=== PATIENT | female | born 1970 | race Caucasian/White ===

== ENCOUNTER 2016-05-12 20:31 | Emergency (ER) | payer BC ==
[2016-05-12 20:43] VITALS: BP 132/82
[2016-05-12] MEDS ORDERED: HYDROcodone/ACETAMIN 5-325 MG* 1 TAB PO ONE (21:02)
[2016-05-12] MEDS ORDERED: Cyclobenzaprine TAB* 10 MG PO ONE (21:02)
--- NOTE | 2016-05-18 08:33 | UC ---
Neck Pain HPI - HPI Summary HPI Summary: right-sided neck pain for several days. Woke with it, no known injury. Hurts to turn head toward that side. Recently started gabapentin, wants to be sure it's not a side effect. No fever. No recent illness other than mild cough. - History of Current Complaint Chief Complaint: UCGeneralIllness Stated Complaint: left shoulder/neck swelling Time Seen by Provider: 05/12/16 20:47 Hx Obtained From: Patient, Family/Cte Teacher Mechanism Of Injury: No Known Trauma Timing: Constant Onset/Duration: Gradual Onset - woke with it, gradually worsened Severity: Mild Pain Intensity: 8 Pain Scale Used: 0-10 Numeric Character: Dull, Aching, Stiff Aggravating Factors: Movement Alleviating Factors: Heat Associated Signs & Symptoms: Negative: Swelling, Redness, Weakness, Headache - Risk Factors Meningitis Risk Factors: Negative - Allergies/Home Medications Allergies/Adverse Reactions: Allergies Allergy/AdvReac Type Severity Reaction Status Date / Time Shellfish Allergy Allergy Severe Anaphylatic Verified 05/12/16 20:43 Shock Iodine Allergy Anaphylatic Verified 05/12/16 20:43 Shock Topiramate [From Topamax] Allergy Anaphylatic Verified 05/12/16 20:43 Shock Home Medications: Home Medications Gabapentin CAP(*) [Neurontin 300 CAP(*)] 600 mg PO BID 05/12/16 [History Confirmed 05/12/16] PMH/Surg Hx/FS Hx/Imm Hx - Additional Past Medical History Additional PMH: chronic pain Respiratory History Of: Reports: Asthma - Surgical History Surgical History: Yes Surgery Procedure, Year, and Place: hysterectomy. uterine cancer removed. appy. wrist surgery. - Family History Known Family History: Positive: Hypertension - Social History Occupation: Employed Full-time Lives: With Family Alcohol Use: None Substance Use Type: None Smoking Status (MU): Former Smoker When Did the Patient Quit Smoking/Using Tobacco: 2004 - Immunization History Most Recent Influenza Vaccination: 12/2013 Review Of Systems Constitutional: Positive: Negative Skin: Positive: Negative Eyes: Positive: Negative ENT: Positive: Negative Respiratory: Positive: Negative Cardiovascular: Positive: Negative Gastrointestinal: Positive: Negative Genitourinary: Positive: Negative Musculoskeletal: Positive: Decreased ROM, Myalgia Neurological: Positive: Headache - off and on, not severe Psychological: Positive: Negative All Other Systems Reviewed And Are Negative: Yes Physical Exam Triage Information Reviewed: Yes Appearance: Well-Appearing, No Pain Distress, Well-Nourished Vital Signs: Initial Vital Signs Temp 98.2 F 05/12/16 20:39 Pulse 84 05/12/16 20:39 Resp 16 05/12/16 20:39 BP 132/82 05/12/16 20:39 Pulse Ox 97 05/12/16 20:39 Vital Signs Reviewed: Yes Eye Exam: Normal ENT Exam: Normal Neck: Positive: Tenderness @ - right lateral neck, trapezius area Respiratory Exam: Normal Cardiovascular Exam: Normal Musculoskeletal Exam: Normal Neurological Exam: Normal Neurological: Positive: Alert, Muscle Tone Normal Psychological Exam: Normal Neck Pain Course/Dx - Differential Dx/Diagnosis Differential Dx/HQI/PQRI: Torticollis Provider Diagnoses: torticolllis Discharge - Discharge Plan Condition: Stable Disposition: HOME Prescriptions: Cyclobenzaprine TAB* [Flexeril TAB*] 10 mg PO TID PRN #20 tab PRN Reason: neck spasm Hydrocodone-Acetaminophen [Hydrocodone/Acetaminophen 5-325 mg] 1 - 2 tab PO Q6HR PRN #20 tab MDD 6 tab PRN Reason: neck pain Patient Education Materials: Spasmodic Torticollis (ED) Forms: *Work Release Referrals: Joe Raygoza PA [Primary Care Provider] -
== END 2016-05-12 21:18 | disposition home or self-care (01) ==
LOC: UCCORT 20:31
DX: M43.6 Torticollis (principal); Z87.891 Personal history of nicotine dependence
CPT/HCPCS: 99212; A9270-GY; G0463

== ENCOUNTER 2017-03-30 10:03 | Emergency (ER) | payer BC ==
--- NOTE | 2017-03-30 11:18 | UC ---
Respiratory Complaint HPI - HPI Summary HPI Summary: 47 year old female asthmatic presents with complains of cough and wheezing. - History of Current Complaint Stated Complaint: COUGH,FEVER,HEAVY BREATHING Time Seen by Provider: 03/30/17 11:18 Hx Obtained From: Patient Onset/Duration: Sudden Onset Severity Initially: Moderate Severity Currently: Moderate Pain Scale Used: 0-10 Numeric - 0 Character: Cough: Nonproductive Alleviating Factors: Bronchodilator Associated Signs And Symptoms: Positive: Wheezing - Allergies/Home Medications Allergies/Adverse Reactions: Allergies Allergy/AdvReac Type Severity Reaction Status Date / Time Shellfish Allergy Allergy Severe Anaphylatic Verified 03/30/17 11:19 Shock Iodine Allergy Anaphylatic Verified 03/30/17 11:19 Shock Topiramate [From Topamax] Allergy Anaphylatic Verified 03/30/17 11:19 Shock PMH/Surg Hx/FS Hx/Imm Hx Previously Healthy: Yes - Surgical History Surgical History: Yes Surgery Procedure, Year, and Place: hysterectomy. uterine cancer removed. appy. wrist surgery. - Family History Known Family History: Positive: Hypertension - Social History Alcohol Use: None Substance Use Type: None Smoking Status (MU): Former Smoker When Did the Patient Quit Smoking/Using Tobacco: 2004 - Immunization History Most Recent Influenza Vaccination: 12/2013 Review of Systems Constitutional: Negative Skin: Negative Eyes: Negative ENT: Nasal Discharge, Sinus Congestion, Sinus Pain/Tenderness Respiratory: Cough Cardiovascular: Negative Gastrointestinal: Negative Genitourinary: Negative Motor: Negative Neurovascular: Negative Musculoskeletal: Negative Neurological: Negative Psychological: Negative All Other Systems Reviewed And Are Negative: Yes Physical Exam Triage Information Reviewed: Yes Vital Signs Reviewed: Yes Eye Exam: Normal ENT: Positive: Pharyngeal erythema, Nasal congestion, Nasal drainage, Sinus tenderness Dental Exam: Normal Neck exam: Normal Neck: Positive: 1 Respiratory: Positive: Rhonchi, Wheezing Cardiovascular Exam: Normal Abdominal Exam: Normal Musculoskeletal Exam: Normal Neurological Exam: Normal Psychological Exam: Normal Skin Exam: Normal Respiratory Course/Dx - Differential Dx/Diagnosis Provider Diagnoses: bronchitis. sinusitis Discharge - Discharge Plan Condition: Stable Disposition: HOME Prescriptions: Albuterol HFA INHALER* [Ventolin HFA Inhaler*] 1 puff INH Q6H PRN #1 mdi PRN Reason: Wheezing Amoxicillin/Clavulanate TAB* [Augmentin TAB 875*] 875 mg PO BID #20 tab Guaifenesin-Codeine [Cheratussin AC] 1 teasp PO Q8H PRN #120 syp MDD 15 ml PRN Reason: Cough predniSONE TAB* [Deltasone TAB*] 40 mg PO DAILY #10 tab Patient Education Materials: Acute Cough (ED) Forms: *Work Release Referrals: Joe Raygoza PA [Primary Care Provider] -
[2017-03-30 11:19] VITALS: BP 131/78
[2017-03-30] MEDS ORDERED: Albuterol 2.5 MG/3 ML NEB.SOL* (0.083%) INH ONE (11:24)
[2017-03-30] MEDS ORDERED: guaiFENesin/CODIEN 100MG-10MG* 5 ML UDC PO ONE (11:24)
[2017-03-30] MEDS ORDERED: predniSONE TAB* 20 MG PO ONE (11:25)
== END 2017-03-30 11:58 | disposition home or self-care (01) ==
LOC: UCCORT 10:03
DX: J40 Bronchitis, not specified as acute or chronic (principal); J32.9 Chronic sinusitis, unspecified; Z91.013 Allergy to seafood; Z88.8 Allergy status to other drugs, medicaments and biological substances; Z87.891 Personal history of nicotine dependence
CPT/HCPCS: 99211; A9270-GY; G0463; J7512

== ENCOUNTER 2017-07-24 21:03 | Emergency (ER) | payer BC ==
[2017-07-24 21:35] VITALS: BP 118/86
--- NOTE | 2017-07-24 22:07 | UC ---
Throat Pain/Nasal Ashvin HPI - HPI Summary HPI Summary: patient c/o sore throat for close to a month, states she went to PCP without an answer and then came to on 07/05/17. Rapid strept was negative, was given course of keflex which she states she completed and that initially made her feel better but now has recurrence of pain as she swallows. She also c/o occasional dry cough. Denies fever. States she is taking 2 medications for GERD and follows antireflux measures. - History of Current Complaint Chief Complaint: UCGeneralIllness Stated Complaint: SORE THROAT RECHECK Time Seen by Provider: 07/24/17 21:40 Hx Obtained From: Patient Hx Last Menstrual Period: 1999 Onset/Duration: Gradual Onset, Lasting Weeks Severity: Moderate Pain Intensity: 8 Cough: Nonproductive Associated Signs & Symptoms: Positive: Negative - Epiglottits Risk Factors Epiglottis Risk Factors: Negative - Allergies/Home Medications Allergies/Adverse Reactions: Allergies Allergy/AdvReac Type Severity Reaction Status Date / Time Iodine and Iodide Containing Allergy Severe Anaphylatic Verified 07/24/17 21:36 Produc Shock shellfish derived Allergy Severe Anaphylatic Verified 07/24/17 21:36 Shock apricot Allergy Unknown ITCHING Verified 07/24/17 21:36 FROM HEAD TO TOES topiramate [From Topamax] Allergy Unknown Anaphylatic Verified 07/24/17 21:36 Shock PMH/Surg Hx/FS Hx/Imm Hx Previously Healthy: Yes Respiratory History: Asthma GI/ History: Gastroesophageal Reflux Psychological History: Depression - Surgical History Surgical History: Yes Surgery Procedure, Year, and Place: hysterectomy. uterine cancer removed. appy. wrist surgery. . LEFT GROIN LYMPH NODE EXCISION - Family History Known Family History: Positive: Hypertension - Social History Alcohol Use: None Substance Use Type: None Smoking Status (MU): Former Smoker When Did the Patient Quit Smoking/Using Tobacco: 2004 - Immunization History Most Recent Influenza Vaccination: 12/2013 Review of Systems Constitutional: Negative ENT: Sore Throat Respiratory: Cough All Other Systems Reviewed And Are Negative: Yes Physical Exam Triage Information Reviewed: Yes Appearance: Well-Appearing Vital Signs: Initial Vital Signs Temp 97.9 F 07/24/17 21:31 Pulse 93 07/24/17 21:31 Resp 14 07/24/17 21:31 BP 118/86 07/24/17 21:31 Pulse Ox 97 07/24/17 21:31 Vital Signs Reviewed: Yes Eyes: Positive: Conjunctiva Clear ENT: Positive: Hearing grossly normal Neck exam: Normal Neck: Positive: Supple, Nontender, No Lymphadenopathy Respiratory: Positive: Chest non-tender, Lungs clear, Normal breath sounds, No respiratory distress Cardiovascular: Positive: RRR, No Murmur, Pulses Normal, Brisk Capillary Refill Throat Pain/Nasal Course/Dx - Course Course Of Treatment: discussed with patient possible diagnosis of GERD due to chronicity of sore throat, offered MMW which she declined. She had recent course of keflex and currently not medically indicated to repeat antibiotics. She declined throat culture, will have her f/u with GI for work up - Differential Dx/Diagnosis Provider Diagnoses: GERD. VIral URI Discharge - Sign-Out/Discharge Documenting (check all that apply): Discharge/Admit/Transfer - Discharge Plan Condition: Stable Disposition: HOME Patient Education Materials: Gastroesophageal Reflux Disease (DC) Referrals: Laila Park NP [Primary Care Provider] - Additional Instructions: follow up with ice maker due to chronic sore throat, r/o GERD exacerbation - Billing Disposition and Condition Condition: STABLE Disposition: HOME
== END 2017-07-24 22:05 | disposition home or self-care (01) ==
LOC: UCCORT 21:03
DX: K21.9 Gastro-esophageal reflux disease without esophagitis (principal); J06.9 Acute upper respiratory infection, unspecified; Z88.8 Allergy status to other drugs, medicaments and biological substances; Z91.041 Radiographic dye allergy status; Z87.891 Personal history of nicotine dependence
CPT/HCPCS: 99211; G0463

== ENCOUNTER 2018-01-12 12:16 | Emergency (ER) | payer BC ==
--- OUTSIDE RECORDS SUMMARY | 2018-01-12 13:44 | XMS REPORT ---
:1970 External Reference #:[id number] Author Organization [facility] 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 Joe Park, MANAGER BAR Primary Care Physician Unavailable Payers Type Date Identification Numbers Payment Provider Subscriber Commercial Policy Number: [id number] Ulises Mcdonnell PayID: [id number] [address] [address] [place] [address] Problems Date Description Provider Status Onset: 04/22/2017 Migraine with typical aura Joe Park ENVIRONMENTAL HEALTH TECHNOLOGIST Active Onset: 04/22/2017 Uncomplicated moderate persistent Joe Park ENVIRONMENTAL HEALTH TECHNOLOGIST Active asthma Onset: 04/22/2017 Obesity Joe Park, ENVIRONMENTAL HEALTH TECHNOLOGIST Active Onset: 05/04/2017 Ulcerative colitis Joe Park, ENVIRONMENTAL HEALTH TECHNOLOGIST Active Onset: 06/30/2017 Hyperglycemia Joe Park, ENVIRONMENTAL HEALTH TECHNOLOGIST Active Note: A1C 6.2 on 03/2017 Onset: 08/06/2017 Hypothyroidism Joe Park, ENVIRONMENTAL HEALTH TECHNOLOGIST Active Onset: 12/16/2017 Non-alcoholic fatty liver Yolanda Parkfervidalgh, ENVIRONMENTAL HEALTH TECHNOLOGIST Active Family History Date Family Member(s) Problem(s) Comments General CAD Father Hypertension : (age Father due to Pancreatic caused diabetes 52 Years) Cancer Mother Thyroid Disease Mother Heart Disease Mother Hypertension Mother Depression Mother Rheumatoid Arthritis Mother Osteoarthritis Mother Atrial Fibrillation Mother Osteoporosis Mother Abdominal Aortic Aneurysm H/O smoking : (age Paternal Grandfather due to Liver + ETOH 54 Years) Cancer Paternal Grandmother Hypertension : (age Paternal Grandmother due to Heart 79 Years) Attack Maternal Grandfather due to Lung Cancer () - + smoker Maternal Grandmother Diabetes Maternal Grandmother due to Stomach () Cancer Maternal Grandmother due to Uterine () Cancer Social History Type Date Description Comments Lives With Spouse Lives With Children x 3 Diet Patient follows no dietary restrictions 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 ADL's/IADL's Independent with all ADL's ETOH Use Denies alcohol use Smoking 04/22/2017 Patient is a former smoker 20 pack year history Allergies, Adverse Reactions, Alerts Date Description Reaction Status Severity Comments 04/22/2017 Shellfish-Derived Products active 04/22/2017 Topamax active 04/22/2017 Apricots active 04/22/2017 Spider Bites active Medications Medication Date Status Form Strength Qnty SIG Indications Ordering Provider Polyethylene 11/21/ Active Powder 3350NF 527un Mix One K51.90 Clune, Glycol 3350 2018 its Tablespoon Jenniferl In 8 Ounces eigh, ENVIRONMENTAL HEALTH TECHNOLOGIST Of Water Or Fluid And Drink Twice Daily Levothyroxine 07/30/ Active Tablets 50mcg 30tab 1 by mouth Angelica, Sodium 2018 s every day FATUMA Bo-BC, ENVIRONMENTAL HEALTH TECHNOLOGIST, Ibclc Biotin 04/22/ Active Tablets 5000mcg 2 by mouth Cl2017 every day Jenniferl eigh, ENVIRONMENTAL HEALTH TECHNOLOGIST Advair HFA 04/22/ Active Aerosol 115-21mcg/ 16gm use 1 puffs J45.40 2017 Act twice daily Jenniferl for asthma eigh, ENVIRONMENTAL HEALTH TECHNOLOGIST prevention - rinse mouth afterwards Acetaminophen-C / Active Tablets 300-30mg Unknown odeine #3 0000 Ventolin HFA / Active Aerosol 108(90Base Take 1 puff Unknown 0000 ) mcg/Act By Mouth Every 6 Hours as Needed For Wheeze Sertraline HCL / Active Tablets 100mg Raygoza, 0000 Girish WILLAMS Famotidine / Active Tablets 40mg 30tab 1 tab by Cl, s mouth every Jenniferl daily eigh, ENVIRONMENTAL HEALTH TECHNOLOGIST Milk Thistle / Active Capsules 250mg takes Cl 2-1000mg Jenniferl gel caps eigh, ENVIRONMENTAL HEALTH TECHNOLOGIST daily otc Vitamin C / Active Tablets 1000mg 1 by mouth Clune, 0000 every day Jenniferl eigh, ENVIRONMENTAL HEALTH TECHNOLOGIST Pantoprazole / Active Tablets DR 40mg 60tab take 1 Clune, Sodium s tablet by Jenniferl mouth twice eigh, ENVIRONMENTAL HEALTH TECHNOLOGIST a day Prednisone 12/29/ Hx Tablets 10mg 21tab start at 6 M54.31 Vivian, 2017 - s tabs by Jenniferl 01/06/ mouth every eigh, ENVIRONMENTAL HEALTH TECHNOLOGIST 2017 day and decrease by one tab each day until gone Miralax 08/06/ Hx Powder 3350NF 1Bott 1 K51.90 Vivian, 2017 - le tablespoon Jenniferl 11/21/ in 8ounces eigh, ENVIRONMENTAL HEALTH TECHNOLOGIST 2017 of water or fluid bid Cefdinir 07/28/ Hx Capsules 300mg 20cap 1 by mouth J01.90 Angelica, 2018 - s twice a day Betzy, 08/06/ PNP-BC, 2018 ENVIRONMENTAL HEALTH TECHNOLOGIST, Ibclc Prednisone 07/28/ Hx Tablets 20mg 5tabs 2 tabs J02.9 Angelica, 2018 - today; 1 Betzy 08/06/ tab for 2 PNP-BC, 2018 days; 2 ENVIRONMENTAL HEALTH TECHNOLOGIST, days of 1/2 Ibclc tab Nortriptyline / Hx Capsules 25mg Unknown HCL 0000 - 2017 Cholest Off Hx 1 aday otc Clune, 0000 - Jenniferl , ENVIRONMENTAL HEALTH TECHNOLOGIST 2018 Metab Up Plus / Hx 1 daily Clune, 0000 - Jenniferl , ENVIRONMENTAL HEALTH TECHNOLOGIST 2017 Vital Signs Date Vital Result Comment 12/29/2017 BP Systolic 120 mmHg BP Diastolic 80 mmHg Body Temperature 98.5 F Heart Rate 91 /min Respiratory Rate 18 /min Weight 222.00 lb O2 % BldC Oximetry 97 % Ra Pain Level 7 lower back, right leg. 08/06/2017 BP Systolic Sitting Resting Right Arm 128 mmHg BP Diastolic Sitting Resting Right Arm 78 mmHg Body Temperature 98.1 F Heart Rate 78 /min Respiratory Rate 18 /min Height 64 inches 5'4" Weight 218.12 lb BMI (Body Mass Index) 37.4 kg/m2 BSA (Body Surface Area) 2.03 m2 [place] body weight in kilograms 54 07/28/2017 BP Systolic 148 mmHg BP Diastolic 80 mmHg Body Temperature 98.0 F Heart Rate 128 /min Respiratory Rate 18 /min Height 64 inches 5'4" Weight 219.25 lb BMI (Body Mass Index) 37.6 kg/m2 BSA (Body Surface Area) 2.03 m2 [place] body weight in kilograms 54 O2 % BldC Oximetry 98 % 05/04/2017 BP Systolic Sitting Left Arm 118 mmHg BP Diastolic Sitting Left Arm 74 mmHg Heart Rate 80 /min Respiratory Rate 20 /min Height 64 inches 5'4" Weight 220.00 lb BMI (Body Mass Index) 37.8 kg/m2 BSA (Body Surface Area) 2.04 m2 [place] body weight in kilograms 54 04/22/2017 BP Systolic Sitting Left Arm 122 mmHg BP Diastolic Sitting Left Arm 76 mmHg Heart Rate 88 /min Respiratory Rate 18 /min Height 64 inches 5'4" Weight 225.25 lb BMI (Body Mass Index) 38.7 kg/m2 BSA (Body Surface Area) 2.06 m2 [place] body weight in kilograms 54 Results Test Date Test Result H/L Range Note Rheumatoid Panel ([facility]) 12/30/2017 Sedimentation Rate 20 mm/hr 0-20 1, 2 Uric Acid 5.5 mg/dL 2.6-6.0 1 Rheumatoid Factor Screen < 10.0 IU/mL 0.0-15.0 1 C-Reactive Protein,Quant 6.1 mg/L High <3.0 1 Antinuclear Antibodies, Ifa Negative . 1, 3 Lyme AB/Western Blot 12/30/2017 Lyme Total AB/Reflex < 0.91 ISR 0.00- 0.90 1, 4 Reflex To WB Lyme Disease Antibody,QT,Igm < 0.80 index 0.00-0.79 1, 5 CBC 12/30/2017 White Blood Count 20.8 K/uL High 3.1-10.7 1 Red Blood Count 4.59 M/uL 3.90-5.40 1 Hemoglobin 13.4 gm/dL 11.6-15.8 1 Hematocrit 40.1 % 36.0-46.1 1 Mean Cell Volume 87.4 fl 80.9-99.0 1 Mean Corpuscular HGB 29.2 pg 25.9-32.7 1 Mean Corpuscular HGB Conc 33.4 g/dL 30.8-34.3 1 Platelet Count 425 K/uL High 155-360 1 Red Cell Distri Width %CV 13.0 % 11.7-14.4 1 Mean Platelet Volume 9.8 fL 8.9-12.4 1 Systemic Lupus Erythem. Profil 12/30/2017 Ra Latex Turbid. <10.0 IU/mL 0.0-13.9 1 Anti-Dna Antibody (Kotlik) 2 IU/mL 0-9 1, 6 SM Antibody <0.2 AI 0.0-0.9 1 CHANNELER INSOLE Antibody 0.4 AI 0.0-0.9 1 Sjogrens Antibodies (Ssa) <0.2 AI 0.0-0.9 1 Antichromatin Antibodies <0.2 AI 0.0-0.9 1 Sjogrens Antibodies (SSB) <0.2 AI 0.0-0.9 1 Laboratory test finding 12/30/2017 Thyroid Stim Hormone 1.12 uIU/mL 0.30- 4.20 1 Vitamin D,1,25 Dihydroxy 48.3 pg/mL 19.9-79.3 1, 7 Calcium 9.1 mg/dL 8.5-10.1 1 Total Protein 8.3 g/dL High 6.4-8.2 1 Albumin 3.6 g/dL 3.4-5.0 1 Alb/Glob 0.8 ratio 1 Alkaline Phosphatase 179 U/L High 45-117 1 Globulin 4.7 g/dL High 1.9-4.3 1 Ua RFX Micro & Culture II 12/15/2017 Urine Color YELLOW Yellow 8 Urine Clarity CLEAR Clear 8 Urine Glucose - Dipstick NEGATIVE mg/dL Negative 8 Urine Bilirubin - Dipstick NEGATIVE Negative 8 Urine Ketone NEGATIVE mg/dL Negative 8 Urine Specific [place] >=1.030 1.010-1.030 8 Urine Blood NEGATIVE Negative 8 Urine PH 5.5 Low 6.5-7.5 8 Urine Protein - Dipstick NEGATIVE mg/dL Negative 8 Urine Urobilinogen - Dipstick 0.2 E.U./dL 0.2-1.0 8 Urine Nitrite - Dipstick NEGATIVE Negative 8 Urine Leuk Esterase NEGATIVE Negative 8 Source: URINE, CLEAN CAT <SEE NOTE> 8, 9 pH Ur Strip.auto 12/15/2017 pH Ur Strip.auto 5.5 Low 6.5-7.5 Urobilinogen Ur 12/15/2017 Urobilinogen Ur 0.2 0.2-1.0 Strip-aCnc Strip-aCnc Urine total bilirubin 12/15/2017 Urine total bilirubin Negative Negative detection by automated detection by automated test test strip Urine hemoglobin 12/15/2017 Urine hemoglobin Negative Negative detection by automated detection by automated test strip test strip Urine glucose 12/15/2017 Urine glucose Negative Negative measurement by measurement by automated test strip automated test strip (mass/volume) Laboratory test 12/15/2017 Urine HCG NEGATIVE Negative 8, 10 finding (Qualitative) Color Ur 12/15/2017 Color Ur Yellow Yellow Ketones Ur 12/15/2017 Ketones Ur Negative Negative Strip.auto-mCnc Strip.auto-mCnc Urine appearance 12/15/2017 Urine appearance Clear Clear determination determination Prot Ur 12/15/2017 Prot Ur Negative Negative Strip.auto-mCnc Strip.auto-mCnc Leukocyte esterase Ur 12/15/2017 Leukocyte esterase Ur Negative Negative Ql Strip.auto Ql Strip.auto Nitrite Ur Ql 12/15/2017 Nitrite Ur Ql Negative Negative Strip.auto Strip.auto Differential-WBC 07/28/2017 Total Cells Counted 100 #CELLS 11 Confirm Band% 2 % 0-8 11 Neutrophils% 31 % Low 33-73 11 Lymph% 38 % 20-42 11 Atypical Lymph% 14 % High 0-7 11, 12 Monocyte% 9 % 0-10 11 Eosinophil% 4 % 0-5 11 Basophil% 2 % 0-2 11 Platelet Estimate NORMAL 11 Toxic Granulation 0-1+ 11 Differential Comment LARGE PLATELETS <SEE NOTE> 11, 13 Path Review: 07/28/2017 Path Review: INDICATED,SLIDE <SEE 11, 14 NOTE> CBS W/Automated 07/28/2017 White Blood 11.7 K/uL High 3.1-10.7 11 Diff Count Red Blood Count 4.94 M/uL 3.90-5.40 11 Hemoglobin 14.4 gm/dL 11.6-15.8 11 Hematocrit 44.3 % 36.0-46.1 11 Mean Cell Volume 89.7 fl 80.9-99.0 11 Mean Corpuscular HGB 29.1 pg 25.9-32.7 11 Mean Corpuscular HGB Conc 32.5 g/dL 30.8-34.3 11 Platelet Count 375 K/uL High 155-360 11 Red Cell Distri Width SD 43.7 fl 3-47 11 Red Cell Distri Width %CV 13.6 % 11.7-14.4 11 Mean Platelet Volume 9.9 fL 8.9-12.4 11 Neut% 40.6 % 40.4-72.8 11 Lymph % 46.9 % High 20.0-42.0 11 Bowman % 7.3 % 4.3-13.2 11 Eo% 4.6 % 0.0-6.6 11 Bas% 0.6 % 0.0-1.1 11 Neut# 4.73 K/uL 1.8-7.0 11 Lymph # 5.46 K/uL High 1.0-4.0 11 Bowman # 0.85 K/uL 0.3-0.9 11 Eos # 0.54 K/uL High 0.0-0.5 11 Baso # 0.07 K/uL 0.0-0.1 11 Laboratory test 07/28/2017 Bowman Screen NEGATIVE Negative 11, 15 finding (Heterophile) Ebv Acute Infection 07/28/2017 Ebv AB Vca,Igm <36.0 U/mL 0.0-35.9 11, 16 Antibodies Ebv Early Antigen AB, IgG <9.0 U/mL 0.0-8.9 11, 17 Ebv AB Vca,Igg >600.0 U/mL High 0.0-17.9 11, 18 Ebv Nuclear Antigen AB, Igg 147.0 U/mL High 0.0-17.9 11, 19 Ebv Interpretation (SEE NOTE) 11, 20 Laboratory test finding 07/28/2017 Thyroid Stim 4.26 uIU/mL High 0.30- 4.20 11 Hormone Slide Review 07/28/2017 Slide Review DIFF ORDERED 11 Laboratory test finding 07/05/2017 Rapid Strep Negative Negative 21 Molecular Comprehensive Metabolic 04/22/2017 Glucose 96 mg/dL 74-106 22 Panel BUN 12 mg/dL 7-18 22 Creatinine 0.8 mg/dL 0.6-1.3 22 Glom Filtration Rate, Estimate >60 mL/min >60 22 If >60 mL/min >60 22, 23 BUN/Creat 15.0 ratio 22 Sodium 139 mmol/L 136-145 22 Potassium 4.2 mmol/L 3.5-5.1 22 Chloride 106 mmol/L 98-107 22 Carbon Dioxide 27 mmol/L 21-32 22 Anion Gap 6 mEq/L Low 8-16 22 Calcium 9.6 mg/dL 8.5-10.1 22 Total Protein 8.0 g/dL 6.4-8.2 22 Albumin 3.8 g/dL 3.4-5.0 22 Globulin 4.2 g/dL 1.9-4.3 22 Alb/Glob 0.9 ratio 22 Bilirubin,Total 0.3 mg/dL 0.2-1.0 22 Sgot/Ast 28 U/L 15-37 22 SGPT/Alt 54 U/L 12-78 22 Alkaline Phosphatase 179 U/L High 45-117 22 LDL Cholesterol Profile 04/22/2017 Cholesterol 202 mg/dL High <200 22, 24 Triglycerides 312 mg/dL High <150 22, 25 HDL Cholesterol 28 mg/dL Low >40 22, 26 LDL-Cholesterol 112 mg/dL < 100 22, 27 Laboratory test 04/22/2017 Thyroid Stim Hormone 3.60 uIU/mL 0.30-4.20 22 finding Thyroid Antibodies 04/22/2017 Thyroglobulin Antibody < 1.0 IU/mL 0.0-0.9 22, 28 Thyroid Peroxidase Antibodies 32 IU/mL 0-34 22, 29 Laboratory test finding 04/22/2017 Free T3 3.23 pg/mL 2.18-3.98 22 Free T4 1.03 ng/dL 0.76-1.46 22 Amylase 22 U/L Low 25-115 22 Lipase 87 U/L 56-289 22 CBS W/Automated Diff 04/22/2017 White Blood Count 11.1 K/uL High 3.1-10.7 22 Red Blood Count 4.81 M/uL 3.90-5.40 22 Hemoglobin 14.0 gm/dL 11.6-15.8 22 Hematocrit 43.2 % 36.0-46.1 22 Mean Cell Volume 89.8 fl 80.9-99.0 22 Mean Corpuscular HGB 29.1 pg 25.9-32.7 22 Mean Corpuscular HGB Conc 32.4 g/dL 30.8-34.3 22 Platelet Count 374 K/uL High 155-360 22 Red Cell Distri Width SD 43.7 fl 3-47 22 Red Cell Distri Width %CV 13.6 % 11.7-14.4 22 Mean Platelet Volume 10.1 fL 8.9-12.4 22, 30 Neut# 4.55 K/uL 1.8-7.0 22 Lymph # 5.17 K/uL High 1.0-4.0 22 Bowman # 0.82 K/uL 0.3-0.9 22 Eos # 0.53 K/uL High 0.0-0.5 22 Baso # 0.06 K/uL 0.0-0.1 22 Vitamin B12 And Folate 04/22/2017 Vitamin B12 391 pg/mL 193-986 22 Folic Acid 8.3 ng/mL 3.1-17.5 22 Glycohemoglobin A1c 04/22/2017 Glycohemoglobin (A1c) 6.2 % 4.2-6.3 22, 31 eAG 131 mg/dL 22 Laboratory test finding 04/22/2017 Luteinizing Hormone 26.0 mIU/mL 22, 32 Prolactin 9.4 ng/mL 22, 33 Estradiol,Serum 8.9 pg/mL . 22, 34 Testosterone,Free/Weakly Bound 04/22/2017 Testosterone,Serum <3 ng/dL Low 8-48 22 Testosterone,%Free/Weakly BND 22.0 % High 3.0-18.0 22 Testosterone,Free Weakly Bound <.7 ng/dL 0.0-9.5 22 Slide Review 04/22/2017 Slide Review DIFF ORDERED 22 Path Review: 04/22/2017 Path Review: INDICATED,SLIDE <SEE 22, 35 NOTE> Differential-WBC 04/22/2017 Total Cells Counted 100 #CELLS 22 Confirm Neutrophils% 38 % 33-73 22 Lymph% 35 % 20-42 22 Atypical Lymph% 10 % High 0-7 22 Monocyte% 12 % High 0-10 22 Eosinophil% 5 % 0-5 22 Platelet Estimate NORMAL 22 RBC Morphology NORMAL 22 Differential Comment LARGE PLATELETS <SEE NOTE> 22, 36 1 Z82.61 2 Method: Sediplast Modified Westergren 3 Negative <1:80 Borderline 1:80 Positive >1:80 4 Negative <0.91 Equivocal 0.91 - 1.09 Positive >1.09 5 Negative <0.80 Equivocal 0.80 - 1.19 Positive >1.19 IgM levels may peak at 3-6 weeks post infection, then gradually decline. Performed at: - [facility] [id number] Fisher Weir: Toña Oviedo MD, Phone: [phone] Negative <5 Equivocal 5 - 9 Positive >9 7 Performed at: - [facility] [id number] [place] Weir: Luciano Linn MD, Phone: [phone] 8 BACK PAIN, PAIN SHOOTING DOWN LEGS 9 URINE, CLEAN CATCH 10 FIRST MORNING SPECIMENS GENERALLY CONTAIN THE HIGHEST CONCENTRATION OF HCG AND ARE RECOMMENDED FOR EARLY DETECTION OF . Method: Quidel QuickVue One-Step Immunoassay 11 R53.83 12 DIFFERENTIAL CHECKED BY REPEAT COUNT 13 LARGE PLATELETS PRESENT. 14 INDICATED,SLIDE SENT Hematology Consultation Final Report Case# [id number] Final Diagnosis Review of Peripheral Blood Smear Review of peripheral blood smear confirms the hemogram findings. There is mild absolute lymphocytosis. About 20% reactive lymphocytes are present. The findings are suggestive of an acute viral infection or a medication effect. This case was reviewed and signed out at [facility], [address] [address]. JSS 07/30/17 Gross Description Peripheral blood smear Clinical Data Absolute lymphocytosis Yanni Williamson M.D., Pathologist Reported: 07/30/17 5:53 PM Report Signed Electronically Performed at: [facility] [id number] [place] [address] 15 METHOD: Bowman II Rapid Immunochromatographic assay [facility] 16 Negative <36.0 Equivocal 36.0 - 43.9 Positive >43.9 17 Negative < 9.0 Equivocal 9.0 - 10.9 Positive >10.9 18 Negative <18.0 Equivocal 18.0 - 21.9 Positive >21.9 19 Negative <18.0 Equivocal 18.0 - 21.9 Positive >21.9 20 EBV Interpretation Chart Interpretation EBV-IgM EA(D)-IgG VCA-IgG EBNA-IgG EBV Seronegative - - - - Early Phase + - - - Acute Primary + +or- + - Infection Convalescence/Past - +or- + + Infection Reactivated +or- + + + Infection + Antibody Present - Antibody Absent Performed at: RN - [facility] [address] [id number] [place] Weir: Toña Oviedo MD, Phone: [phone] 21 Clinical Informatics Spec: [id number] 22 E66.9 23 Note: Persistent reduction for 3 months or more in an eGFR <60 mL/min/1.73 m2 defines CKD. Patients with eGFR values >/=60 mL/min/1.73 m2 may also have CKD if evidence of persistent proteinuria is present. The original MDRD equation for estimated GFR is not valid for patients less than 18 years of age. Additional information may be found at www.kdoqi.org. 24 Reference Guidelines*: Desirable: ........... < 200 mg/dL Borderline High: ..... 200-239 mg/dL High: ................ >=240 mg/dL * The National Cholesterol Education Program (NCEP) 25 Reference Guidelines*: Normal: ............. < 150 mg/dL Borderline High: .... 150-199 mg/dL High: ............... 200-499 mg/dL Very High: .......... > 500 mg/dL * Source: National Cholesterol Education Program (NCEP) 26 Reference Guidelines*: Low HDL: ..... < 40 mg/dL Normal: ..... 40-60 mg/dL Desirable: ... > 60 mg/dL *The National Cholesterol Education Program(NCEP) 27 Reference Guidelines*: Optimal:........... <100 mg/dL Near Optimal....... 100-129 mg/dL Borderline High.... 130-159 mg/dL High............... 160-189 mg/dL Very High.......... >=190 mg/dL * Source: National Cholesterol Education Program (NCEP) 28 Thyroglobulin Antibody measured by Lopez Banner Methodology 29 Performed at: RN - [facility] [address] [id number] Fisher Weir: Toña Oviedo MD, Phone: [phone] Performed at: - [facility] [address] [id number] Fisher Weir: Luciano Linn MD, Phone: [phone] 30 04/22/17 1434: NEUT% previously reported as: 40.8 % Amended result called to: [] - 04/22/17 at 1434 04/22/17 1434: LYMPH % previously reported as: 46.5 H % Amended result called to: [] - 04/22/17 at 1434 04/22/17 1434: MONO % previously reported as: 7.4 % Amended result called to: [] 04/22/17 at 1434 04/22/17 1434: EO% previously reported as: 4.8 % Amended result called to: [] - 04/22/17 at 1434 04/22/17 1434: BAS% previously reported as: 0.5 % Amended result called to: [] - 04/22/17 at 1434 31 Elevated levels of HbA1c suggest the need for more aggressive treatment of glycemia. The [place] Diabetes Association recommends that a primary goal of therapy should be a HbA1c of <7% and that physicians should re-evaluate the treatment regimen in patients with HbA1c values consistently >8%. 32 Pubertal adults FEMALES, menstrual cycle phases: Follicular Phase............. 1.9-12.8 mIU/mL Mid-Cycle Peak............... 22.2-76.1 mIU/mL Luteal Phase................. 0.6-13.5 mIU/mL Post-meonpausal FEMALE: On menopausal hormone therapy (MHT) ... 1.1-52.4 mIU/mL Not on MHT ............................ 8.6-61.8 mIU/mL 33 Non- ..... 2.2-30.3 ng/mL ......... 8.1-347.6 ng/mL Post-Menopausal .. 0.7-31.5 ng/mL 34 Adult Female: Follicular phase 12.5 - 166.0 Ovulation phase 85.8 - 498.0 Luteal phase 43.8 - 211.0 Postmenopausal <6.0 - 54.7 1st trimester 215.0 - >4300.0 Girls (1-10 years) 6.0 - 27.0 Sharla ECLIA methodology Performed at: - [facility] [id number] [place] Weir: Toña Oviedo MD, Phone: [phone] 35 INDICATED,SLIDE SENT 36 LARGE PLATELETS PRESENT Procedures Date CPT Code Description Status Comment 03/29/2014 Mammogram Completed [facility]. Had biopsy - fibrocystic - continues to have sharp pain at the biopsy site and never wants another mammgraom Encounters Type Date Location Provider CPT E/M Dx Office Visit 12/29/2017 1:15p [facility] [place], [address] M54.31 ENVIRONMENTAL HEALTH TECHNOLOGIST Z82.61 M25.542 Office Visit 08/06/2017 11:45a [facility] [place] [address] [facility] [address] E66.9 J45.40 E03.9 K51.90 Office Visit 07/28/2017 11:00a [facility] Betzy Dominguez, PNP-, [address] R53.83 ENVIRONMENTAL HEALTH TECHNOLOGIST, Ibclc J02.9 J01.90 Office Visit 05/04/2017 9:30a [facility] Joe Park FNP [address] J45.40 K51.90 E66.9 Office Visit 04/22/2017 9:15a [facility] [place] Park FNP [address] J45.40 G43.109 E66.9 Z68.38 Office Visit 06/27/2013 2:08p [place] [address] 786.50 Office Visit 01/04/2013 4:45p [place] [address] 786.59 Plan of Care Future Appointment(s):02/07/2018 1:30 pm - Joe Park FNP at [facility]12/29/2017 - [place] FNPM54.31 Sciatica, right sideNew Medication:Prednisone 10 mgComments: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
[2018-01-12 13:58] VITALS: BP 128/83
--- NOTE | 2018-01-12 14:36 | UC ---
Nausea/Vomiting/Diarrhea HPI - HPI Summary HPI Summary: 47-year-old female presents with 3 day history of nausea, vomiting, diarrhea. Associated with some generalized abdominal pain. States last episode of vomiting or diarrhea was last evening. She has been able to tolerate by mouth fluids today. States she had a formed bowel movement this morning. Denies fever, chills, chest pain, palpitations, weakness, dizziness, shortness of breath, hematemesis, blood in stool, melena, dysuria, urgency, frequency, or hematuria. Her 17-year-old son has been ill with similar symptoms. - History of Current Complaint Chief Complaint: UCGI Stated Complaint: VOMITING/DIARRHEA, HEADACHE, SORE THROAT Time Seen by Provider: 01/12/18 14:08 Hx Obtained From: Patient Hx Last Menstrual Period: 1999 ?: No Onset/Duration: Gradual Onset, Lasting Days - 3 Severity Currently: Moderate Pain Intensity: 7 Location: Diffuse Aggravating Factor(s): Nothing Alleviating Factor(s): Nothing Nausea/Vomiting Presence: Nauseated Nausea/Vomiting Duration: 24-36 hours Vomiting Characteristics: Retching Diarrhea Presence: Yes Diarrhea Duration: 24-36 hours - Allergies/Home Medications Allergies/Adverse Reactions: Allergies Allergy/AdvReac Type Severity Reaction Status Date / Time Iodine and Iodide Containing Allergy Severe Anaphylatic Verified 01/12/18 13:49 Produc Shock shellfish derived Allergy Severe Anaphylatic Verified 01/12/18 13:49 Shock apricot Allergy Unknown ITCHING Verified 01/12/18 13:49 FROM HEAD TO TOES topiramate [From Topamax] Allergy Unknown Anaphylatic Verified 01/12/18 13:49 Shock Home Medications: Home Medications Linaclotide [Linzess] 290 mcg PO DAILY 01/12/18 [History Confirmed 01/12/18] PMH/Surg Hx/FS Hx/Imm Hx Endocrine History: Thyroid Disease Respiratory History: Asthma GI/ History: Gastroesophageal Reflux Other GI/ History: IBS Psychological History: Depression - Surgical History Surgical History: Yes Surgery Procedure, Year, and Place: hysterectomy. uterine cancer removed. appy. wrist surgery. . LEFT GROIN LYMPH NODE EXCISION - Family History Known Family History: Positive: Hypertension - Social History Occupation: Employed Full-time Lives: With Family Alcohol Use: None Substance Use Type: None Smoking Status (MU): Former Smoker When Did the Patient Quit Smoking/Using Tobacco: 2004 - Immunization History Most Recent Influenza Vaccination: 12/2013 Review of Systems Constitutional: Negative Skin: Negative Respiratory: Negative Cardiovascular: Negative Gastrointestinal: Abdominal Pain, Vomiting, Diarrhea, Nausea Genitourinary: Negative Is Patient Immunocompromised?: No All Other Systems Reviewed And Are Negative: Yes Physical Exam Triage Information Reviewed: Yes Appearance: No Pain Distress, Well-Nourished Vital Signs: Initial Vital Signs Temp 97.8 F 01/12/18 13:52 Pulse 83 01/12/18 13:52 Resp 15 01/12/18 13:52 BP 128/83 01/12/18 13:52 Pulse Ox 97 01/12/18 13:52 Vital Signs Reviewed: Yes ENT Exam: Normal Neck: Positive: Supple, Nontender, No Lymphadenopathy Respiratory: Positive: Lungs clear, Normal breath sounds, No respiratory distress Cardiovascular: Positive: RRR, No Murmur, Pulses Normal, Brisk Capillary Refill Abdomen Description: Positive: No Organomegaly, Soft, Other: - mild generalized abdominal tenderness with palpation.. Negative: CVA Tenderness (R), CVA Tenderness (L), Distended, Guarding Neurological: Positive: Alert Skin Exam: Normal Naus/Vom/Diarrhea Course/Dx - Course Course Of Treatment: 47 year old female with 3 day history of nausea, vomiting, diarrhea, and generalized abdominal pain. Her exam was not concerning for an acute abdomen and she had not had any episodes of vomiting or diarrhea in over 12 hours. With her son having similar symptoms it is likely a viral gastroenteritis however cannot fully rule out other cause such as cholecysitis. Patient was offered IV fluids and antiemetics in clinic as she was still nauseous and likely mildly dehydrated. Declines at this time electing to do oral hydration at home. Will provide prescription for ondanstron ODT and have patient push PO fluids. Warning symptoms provided. Verbalizes understanding and agrees with POC. - Differential Dx/Diagnosis Differential Diagnoses - Female: Irritable Bowel Syndrome, Gall Bladder Disease , Gastroenteritis (Viral), Gastroenteritis (Bacterial), Vomiting, Diarrhea Provider Diagnoses: Nausea, vomiting, and diarrhea Condition At Discharge: Stable Discharge - Sign-Out/Discharge Documenting (check all that apply): Patient Departure All imaging exams completed and their final reports reviewed: No Studies - Discharge Plan Condition: Stable Disposition: HOME Prescriptions: Ondansetron ODT TAB* [Zofran 4 MG Odt TAB*] 4 mg PO Q6H PRN #12 tab.odt PRN Reason: Nausea/Vomiting Patient Education Materials: Acute Nausea and Vomiting (ED) Forms: *Work Release Referrals: Laila Park NP [Primary Care Provider] - 3 Days (If no improvement in symptoms.) Additional Instructions: I suspect that her symptoms are from a viral gastrointestinal infection. These typically run their course over a few days. You been given a prescription for ondansetron (Zofran) for the nausea and vomiting. You may take 1 tablet every 6 hours as needed for any nausea or vomiting. Be sure to push plenty of fluids as your are likely mildly dehydrated from the vomiting and diarrhea. Stick with clear fluids while your having any vomiting. Once the vomiting has subsided she may slowly begin introducing some bland foods such as toast, rice, applesauce, bananas. Follow-up with your primary care provider in 3 days if her symptoms do not improve. Seek immediate medical attention in the emergency room if you develop a fever greater than 100.5 F, have worsening abdominal pain, persistent vomiting, blood in your stool, dark black tarry stools, become weak or dizzy, or have any worsening of symptoms. - Billing Disposition and Condition Condition: STABLE Disposition: Home - Attestation Statements Provider Attestation: Per institutional requirements, I have reviewed the chart, however, I was not consulted specifically or made aware of this patient by the midlevel provider. I did not personally evaluate, interact with , or disposition this patient.
== END 2018-01-12 14:44 | disposition home or self-care (01) ==
LOC: UCCORT 12:16
DX: R11.2 Nausea with vomiting, unspecified (principal); R19.7 Diarrhea, unspecified; K58.9 Irritable bowel syndrome, unspecified; E07.9 Disorder of thyroid, unspecified; Z87.891 Personal history of nicotine dependence; Z85.42 Personal history of malignant neoplasm of other parts of uterus; Z88.8 Allergy status to other drugs, medicaments and biological substances; Z91.013 Allergy to seafood; Z91.018 Allergy to other foods
CPT/HCPCS: 99212; G0463

== ENCOUNTER 2018-02-11 17:05 | Emergency (ER) | payer BC ==
[2018-02-11 17:32] VITALS: BP 145/80
--- NOTE | 2018-02-11 18:43 | UC ---
Throat Pain/Nasal Ashvin HPI - HPI Summary HPI Summary: Pt presents with c/o cough, sinus pressure, cough, sinus pain, ear pain, ST X 9 days. - History of Current Complaint Chief Complaint: UCRespiratory Stated Complaint: SORE THROAT,COUGH,FEVER,EARS/EYES Time Seen by Provider: 02/11/18 18:36 Hx Obtained From: Patient Hx Last Menstrual Period: 1999 ?: No Onset/Duration: Sudden Onset, Lasting Days, Still Present Severity: Moderate Pain Intensity: 8 Cough: Nonproductive Associated Signs & Symptoms: Positive: Sinus Discomfort, Fever - Epiglottits Risk Factors Epiglottis Risk Factors: Negative - Allergies/Home Medications Allergies/Adverse Reactions: Allergies Allergy/AdvReac Type Severity Reaction Status Date / Time Iodine and Iodide Containing Allergy Severe Anaphylatic Verified 02/11/18 17:28 Produc Shock shellfish derived Allergy Severe Anaphylatic Verified 02/11/18 17:28 Shock apricot Allergy Unknown ITCHING Verified 02/11/18 17:28 FROM HEAD TO TOES topiramate [From Topamax] Allergy Unknown Anaphylatic Verified 02/11/18 17:28 Shock Home Medications: Home Medications Naproxen Sodium/Pseudoephedrin [Aleve-D Sinus and Cold Caplet] 1 tab PO Q12H PRN 02/11/18 [History Confirmed 02/11/18] PMH/Surg Hx/FS Hx/Imm Hx Previously Healthy: Yes - Surgical History Surgical History: Yes Surgery Procedure, Year, and Place: hysterectomy. uterine cancer removed. appy. wrist surgery. . LEFT GROIN LYMPH NODE EXCISION - Family History Known Family History: Positive: Hypertension - Social History Occupation: Employed Full-time Lives: With Family Alcohol Use: None Substance Use Type: None Smoking Status (MU): Former Smoker Have You Smoked in the Last Year: No When Did the Patient Quit Smoking/Using Tobacco: 2004 - Immunization History Most Recent Influenza Vaccination: 12/2013 Review of Systems All Other Systems Reviewed And Are Negative: Yes Constitutional: Positive: Chills, Fatigue Skin: Positive: Negative Eyes: Positive: Negative ENT: Positive: Sore Throat, Ear Ache, Sinus Congestion, Sinus Pain/Tenderness Respiratory: Positive: Cough Cardiovascular: Positive: Negative Gastrointestinal: Positive: Negative Genitourinary: Positive: Negative Motor: Positive: Negative Neurovascular: Positive: Negative Musculoskeletal: Positive: Myalgia Neurological: Positive: Headache Psychological: Positive: Negative Is Patient Immunocompromised?: No Physical Exam Triage Information Reviewed: Yes Appearance: Ill-Appearing Vital Signs: Initial Vital Signs Temp 98.1 F 02/11/18 17:26 Pulse 81 02/11/18 17:26 Resp 16 02/11/18 17:26 BP 145/80 02/11/18 17:26 Pulse Ox 98 02/11/18 17:26 Vital Signs Reviewed: Yes Eye Exam: Normal ENT: Positive: Nasal congestion, TM bulging, Sinus tenderness Dental Exam: Normal Neck: Positive: Tenderness @ - submaxillary lymph nodes Respiratory Exam: Normal Cardiovascular Exam: Normal Musculoskeletal Exam: Normal Neurological Exam: Normal Psychological Exam: Normal Skin Exam: Normal Throat Pain/Nasal Course/Dx - Differential Dx/Diagnosis Differential Diagnosis/HQI/PQRI: Pharyngitis, Sinusitis, Tonsillitis, URI Provider Diagnoses: sinusitis Discharge - Sign-Out/Discharge Documenting (check all that apply): Patient Departure All imaging exams completed and their final reports reviewed: No Studies - Discharge Plan Condition: Stable Disposition: HOME Prescriptions: Azithromycin TAB* [Zithromax TAB (Z-DENIS) 250 mg #6 tabs] 2 tab PO .TODAY, THEN 1 DAILY #1 denis predniSONE TAB* [Deltasone 20 MG TAB*] 20 mg PO DAILY #4 tab Patient Education Materials: Acute Bronchitis (ED), Tonsillitis (ED) Referrals: Laila Park NP [Primary Care Provider] - 02/14/18 - Billing Disposition and Condition Condition: STABLE Disposition: Home
== END 2018-02-11 18:51 | disposition home or self-care (01) ==
LOC: UCCORT 17:05
DX: J32.9 Chronic sinusitis, unspecified (principal); Z91.018 Allergy to other foods; Z91.013 Allergy to seafood; Z88.8 Allergy status to other drugs, medicaments and biological substances; Z87.891 Personal history of nicotine dependence
CPT/HCPCS: 99212; G0463